=== PATIENT | male | born 1990 | race Caucasian/White ===

== ENCOUNTER 2025-05-01 19:41 | Emergency (ER) | payer MEDICAID, SELFPAY ==
[2025-05-01 19:52] VITALS: BP 153/75; PULSE 74; RESP 16; TEMP 36.3; O2SAT 95; BMI 41.3
== END 2025-05-01 21:15 | disposition left against medical advice (07) ==
PROVIDERS: Emergency Provider Emergency Medicine
CPT/HCPCS: 99281